=== PATIENT | male | born 1925 | race African-American/Black ===

== ENCOUNTER 2017-07-18 12:10 | Inpatient (IN) | payer OTHER ==
[~2017-07-18] VITALS: Ht 180.3 cm; Wt 76.7 kg
--- NOTE | ~2017-07-18 | HC ---
[facility] [place] [address] CONSULTATION Name: MOMO SANTIAGO Room #: [facility] IN M.R.#: [id number] Admission: 07/18/17 Attend Phys: Marty Pereira MD Discharge: Date of : 10/[birth year] Report #: [id number] THIS REPORT FOR: //name// CC: Marty Salinas DATE OF SERVICE: 07/19/2017 CHIEF COMPLAINT: Right proximal humerus fracture. HISTORY OF PRESENT ILLNESS: This 89-year-old gentleman is confused and residing in a nursing facility. He fell injuring the right shoulder. He apparently has no other significant injuries. At the time of my evaluation, he does not recall the fall, but does seem to be pleasant and is cooperative and responsive to my questions. He states he has no other areas of significant injury. He complains of only mild discomfort about the right shoulder. The right arm and shoulder protected in a shoulder immobilizer brace. Distal neurologic and vascular status appeared to be normal. There is no significant swelling or bruising about the right shoulder, but there is some tenderness to palpation. The shoulder seems to be well aligned. X-rays of the right shoulder and proximal humerus reveal a fracture across the surgical neck with just a few millimeters of displacement. Overall alignment is quite acceptable. The humeral head seems to be adequately aligned relative to the glenoid. No other significant structural problems are identified. In summary, this gentleman has a minimally displaced right proximal humerus fracture. I think this is best managed in a nonsurgical fashion. I would suggest continuing with his current shoulder immobilizer brace, which can be adjusted for comfort. He may occasionally loose and remove the brace to allow range of motion of the elbow, wrist and hand. I think he can go back to his nursing facility whenever he is medically stable. I would ask them to call me if there are any problems or questions. I will otherwise plan to see him back in my office in about 3 weeks for followup x-ray. I would anticipate we can gradually move to arm sling and slowly advance activity as comfort allows. By: [id number] Hardeep Franz MD /nt
--- NOTE | ~2017-07-18 | 2DMMODE ---
[facility] [address] [place] [address] 2 D/M-MODE ECHOCARDIOGRAM Name: MOMO SANTIAGO Room #: 402-P [facility] IN .R.#: [id number] Admission: 07/18/17 Attend Phys: Marty Pereira MD Discharge: Date of : 10/[birth year] Date of Service: 07/19/17 1236 Report #: [id number] THIS REPORT FOR: //name// APPROVED REPORT Study performed: 07/19/2017 12:08:33 EXAM: Comprehensive 2D, Doppler, and color-flow Echocardiogram Patient Location: Bedside Room #: [facility] Status: routine BSA: 1.94 HR: 73 bpm BP: 116/50 mmHg Other Information Study Quality: Adequate Indications Syncope Hypertension/HDD 2D Dimensions RVDd: 23.83 mm LVOT Diam: 19.26 (18-24mm) Volumes Left Atrial Volume (Systole) Single Plane 4CH: 31.81 mL Single Plane 2CH: 21.47 mL LA ESV Index: 19.00 mL/m2 Aortic Valve AoV Peak Mann.: 1.49 m/s AO Peak Gr.: 8.83 mmHg LVOT Max P.74 mmHg LVOT Max V: 1.09 m/s JL Vmax: 2.13 cm2 Mitral Valve E/A Ratio: 1.0 MV Decel. Time: 280.10 ms MV E Max Mann.: 0.76 m/s MV A Mann.: 0.76 m/s MV PHT: 81.23 ms IVRT: 92.27 ms [facility] [address] [place] [address] 2 D/M-MODE ECHOCARDIOGRAM Name: MOMO SANTIAGO Room #: 402-P ADM IN M.R.#: [id number] Admission: 07/18/17 Attend Phys: Marty Pereira MD Discharge: Date of : 10/25/27 Date of Service: 07/19/17 1236 Report #: [id number] Pulmonary Valve PV Peak Mann.: 1.10 m/s PV Peak Gr.: 4.88 mmHg Pulmonary Vein P Vein S: 0.42 m/s P Vein A: 0.33 m/s P Vein D: 0.40 m/s P Vein A Dur.: 120.0 msec P Vein S/D Ratio: 1.05 Tricuspid Valve TR Peak Mann.: 2.41 m/s TR Peak Gr.: 23.26 mmHg PA Pressure: 23.00 mmHg Left Ventricle The left ventricle is normal size. There is normal left ventricular wall thickness. The left ventricular systolic function is normal. The left ventricular ejection fraction is within the normal range. LVEF is 65-70%. Grade I - abnormal relaxation pattern. Right Ventricle The right ventricle is normal size. The right ventricular systolic function is normal. Atria The left atrium size is normal. The right atrium size is normal. Aortic Valve The aortic valve is normal in structure. Aortic valve is calcified. No aortic regurgitation is present. There is no aortic valvular stenosis. Mitral Valve The mitral valve is normal in structure. Trace mitral regurgitation. No evidence of mitral valve stenosis. Tricuspid Valve The tricuspid valve is normal in structure. There is trace tricuspid regurgitation. Estimated PAP 23 mmHg plus the right natrial pressure. There is no pulmonary hypertension. Pulmonic Valve The pulmonary valve is normal in structure. There is no pulmonic valvular regurgitation. [employer] [facility] [address] [place] [address] 2 D/M-MODE ECHOCARDIOGRAM Name: MOMO SANTIAGO Room #: 402-P [facility] IN M.R.#: [id number] Admission: 07/18/17 Attend Phys: Marty Pereira MD Discharge: Date of : 10/25/[birth year] Date of Service: 07/19/17 1236 Report #: [id number] The aortic root is normal in size. IVC is not well visualized. Pericardium There is no pericardial effusion. <Conclusion> The left ventricle is normal size. LVEF is 65-70%. Grade I - abnormal relaxation pattern. The right ventricle is normal size. The left atrium size is normal. The aortic valve is normal in structure. Aortic valve is calcified. There is no aortic valvular stenosis. Trace mitral regurgitation. There is no pericardial effusion. <ELECTRONICALLY SIGNED> By: Alen López MD, FACC 07/19/17 1236 1236 1236 Alen López MD, FAC /INF
--- NOTE | ~2017-07-18 | EKG ---
[address] [address] ELECTROCARDIOGRAM REPORT Name: SANTIAGO,MOMO Room #: 402-P ADM IN M.R.#: [id number] Admission: 07/18/17 Attend Phys: Marty Pereira MD Discharge: Date of : 10/25/[birth year] Report #: [id number] THIS REPORT FOR: //name// [facility] ED Test Date: 2017-07-18 Test Time: 12:20:32 Pat Name: MOMO SANTIAGO Department: Room: [facility] Gender: M Wet Inspector Optical Glass: [id number] : 1925 Requested By: Zeny Chowdhury Order Number: [id number] MD: Marlon Jiménez Measurements Intervals [place] Rate: 70 P: 17 DE: 195 QRS: -36 QRSD: 91 T: 39 QT: 422 QTc: 456 Interpretive Statements Sinus rhythm Left axis deviation No previous ECG available for comparison Electronically Signed On 07-18-2017 19:09:32 CORE INSPECTOR by Marlon Jiménez [email or web address] <ELECTRONICALLY SIGNED> By: Marlon Jiménez MD 07/18/17 1909 1220 1220 MD TOMASA Stacy
[2017-07-18 12:11] VITALS: BP 152/62
[2017-07-18] MEDS ORDERED: ASPIR 8181 MG PO (12:17)
[2017-07-18] MEDS ORDERED: ARICEPT 5 MG TAB5 MG PO (12:17)
[2017-07-18] MEDS ORDERED: COZAAR 50 MG TA50 M2 PO (12:17)
[2017-07-18] MEDS ORDERED: VITAMIN B-12500 MCG PO (12:18)
[2017-07-18] MEDS ORDERED: SEROQUEL 25 MG25 M1 PO (12:18)
[2017-07-18 12:34] LABS: ABSOLUTE NEUTROPHILS 3.9 thou/uL (1.4-8.2); BASOPHILS 0.8 % (0.0-2.0); EOSINOPHILS 3.1 % (0.0-3.0); HEMATOCRIT 36.3 % (42.0-52.0); HEMOGLOBIN 12.3 gm/dL (14.0-18.0); LYMPHOCYTES 35.3 % (24.0-44.0); MCH 31.1 pg (26.0-34.0); MCHC 33.8 g/dL (28.0-37.0); PLATELET COUNT 196 thou/uL (150-400); POLYS 51.8 % (36.0-66.0); RBC 3.94 mil/uL (4.50-6.00); RDW 13.1 % (10.5-14.5); WBC 7.5 thou/uL (4.0-11.0)
[2017-07-18 12:37] LABS: MANUAL DIFF NO
[2017-07-18 12:41] LABS: ANION GAP 5 mmol/L (7-16); BUN 28 mg/dL (7-18); CALCIUM 9.2 mg/dL (8.5-10.1); CHLORIDE 107 mmol/L (98-107); CO2 29 mmol/L (21-32); CREATININE 1.2 mg/dL (0.7-1.3); GLUCOSE 104 mg/dL (74-106); POTASSIUM 4.2 mmol/L (3.5-5.1); SODIUM 141 mmol/L (136-145)
[2017-07-18 12:47] LABS: PROTIME 10.1 Seconds (9.3-11.4)
[2017-07-18 12:50] LABS: ALBUMIN 3.3 g/dL (3.4-5.0); ALKALINE PHOSPHATASE 83 U/L (46-116); SGOT 16 U/L (15-37); SGPT 17 U/L (30-65); TOTAL BILIRUBIN 0.2 mg/dL (<0.1-1.0); TOTAL PROTEIN 6.7 g/dL (6.4-8.2); TROPONIN-I < 0.04 ng/mL (<0.06)
[2017-07-18 15:00] VITALS: BP 144/65
[2017-07-18 15:13] VITALS: BP 160/88
[2017-07-18 15:30] VITALS: BP 156/119
[2017-07-18 17:08] VITALS: BP 170/71
[2017-07-18 19:27] VITALS: BP 155/81
[2017-07-18 19:38] LABS: URINE BILIRUBIN NEGATIVE (Negative); URINE BLOOD TRACE (Negative); URINE COLOR YELLOW; URINE GLUCOSE-RANDOM* NEGATIVE (Negative); URINE KETONES NEGATIVE (Negative); URINE NITRITE NEGATIVE (Negative); URINE PROTEIN (DIPSTICK) NEGATIVE (Negative); URINE UROBILINOGEN 0.2 E.U./dl (0.2-1.0)
[2017-07-19 00:06] VITALS: BP 118/62
[2017-07-19 04:13] VITALS: BP 111/57
[2017-07-19 05:34] LABS: HEMATOCRIT 34.4 % (42.0-52.0); HEMOGLOBIN 11.4 gm/dL (14.0-18.0); MCH 30.9 pg (26.0-34.0); MCHC 33.2 g/dL (28.0-37.0); MCV 93.2 fL (80.0-100.0); RBC 3.69 mil/uL (4.50-6.00); WBC 7.3 thou/uL (4.0-11.0)
[2017-07-19 05:51] LABS: CALCIUM 8.5 mg/dL (8.5-10.1); POTASSIUM 4.2 mmol/L (3.5-5.1)
[2017-07-19 07:07] VITALS: BP 116/50
== END 2017-07-19 14:40 | DRG 563 ==
LOC: EDBD 12:10 → ER 12:10 → EROBS 13:09 → 4N 13:09
PROVIDERS: Hospitalist; Physician Assistant
DX: S42.301A Unspecified fracture of shaft of humerus, right arm, initial encounter for closed fracture (principal); F32.9 Major depressive disorder, single episode, unspecified; I10 Essential (primary) hypertension; F03.90 Unspecified dementia, unspecified severity, without behavioral disturbance, psychotic disturbance, mood disturbance, and anxiety; W18.30XA Fall on same level, unspecified, initial encounter; Y92.89 Other specified places as the place of occurrence of the external cause; Y93.41 Activity, dancing; Z79.82 Long term (current) use of aspirin; Y99.8 Other external cause status; Z79.899 Other long term (current) drug therapy
CPT/HCPCS: 10790